=== PATIENT | female | born 1995 | race African-American/Black ===

== ENCOUNTER 2021-10-11 20:10 | Emergency (ER) | payer OTHER, SELFPAY ==
--- NOTE | ~2021-10-11 | CT_ITS ---
EXAMINATION: CT abdomen pelvis wo con DATE: 10/11/2021 21:56 INDICATION: hematuria, LBP TECHNIQUE: Computed tomography (CT) of the abdomen and pelvis was performed without intravenous contr ast. Automated exposure control and iterative reconstruction technique were employed. The dose-length product was 408.79 mGy-cm. COMPARISON: None. FINDINGS: Lower thorax: Unremarkable Liver: Normal. Biliary/Gallbladder: Gallbladder is normal. No bile duct dilation. Pancreas: No mass or duct dilation. Spleen: Normal. Adrenals:No mass. Kidneys: Punctate bilateral nonobstructive calcifications. No mass or hydronephrosis. GI tract: No small or large bowel dilation. Normal appendix. Mesentery/Peritoneum: No ascites, mass, or free air. Retroperitoneum: No mass. Pelvis: Pelvic organs are within normal limits. Soft Tissues: Soft tissues and body wall unremarkable. Small uncomplicated fat-containing umbilical h ernia. Bones: No acute osseous finding. IMPRESSION: No acute abdominopelvic process. Reviewed, dictated and finalized at location K.
[2021-10-11 20:48] VITALS: BP 143/98; PULSE 73; RESP 18; TEMP 37.1; O2SAT 100
[2021-10-11 21:09] LABS: Add Urine Microscopic? YES; Appearance Urine Cloudy (Clear); Bilirubin Urine Negative (Negative); Blood Urine 3+ (Negative); Color Urine Red (Yellow); Glucose Urine UA Negative (Negative); Ketones Urine Negative (Negative); Leukocyte Esterase Ur Trace LEU/UL (Negative); Nitrate Urine Negative (Negative); Protein Urine 3+ mg/dL (Negative); Specific Grav Ur >= 1.030 (1.001-1.035); Urobilinogen Urine 0.2 mg/dL (<2.0)
[2021-10-11 21:15] LABS: RBC Urine >75 /hpf (0-2); WBC Urine 0-3 /hpf
--- NOTE | 2021-10-11 21:47 | ED.FEMALEGU ---
HPI - Female Genitourinary General Chief complaint: Urogenital-Female <Daphne Frank PA-C - Last Filed: 10/12/21 01:42> Stated complaint: UTI <Daphne Frank PA-C - Last Filed: 10/12/21 01:42> Time Seen by Provider: 10/11/21 21:25 <Daphne Frank PA-C - Last Filed: 10/12/21 01:42> History of Present Illness HPI Narrative: Patient is a 26-year-old female here for evaluation of dysuria, suprapubic abdominal pain, and low back pain for the past day. Patient states that the pain is present in her lower abdomen and is also occasionally in her low back, described as a dull ache. Patient has a history of UTI, but has not had one since she was a teenager. Patient has not taken any medication for her pain. Denies fevers, chills, nausea, vomiting, vaginal discharge. <ANA LUISA Tidwell Last Filed: 10/12/21 01:42> Related Data Allergies/Adverse reactions: Allergies Allergy/AdvReac Type Severity Reaction Status Date / Time No Known Allergies Allergy Verified 10/11/21 20:51 <ANA LUISA Tidwell Last Filed: 10/12/21 01:42> Review of Systems Review of Systems: Gen: Denies fevers or chills Eyes: Denies eye pain or visual change ENT: Denies congestion Respiratory: Denies shortness of breath or cough CV: Denies chest pain or palpitations GI: Reports abdominal pain. Denies nausea, emesis or diarrhea : reports hematuria, dysuria, burning. Musculoskeletal: Denies back pain or muscle pain Neuro: Denies numbness, tingling, weakness or focal weakness Skin: Denies rash Except as documented, all other systems reviewed and negative <ANA LUISA Tidwell Last Filed: 10/12/21 01:42> Exam Narrative: APPEARANCE: Well appearing, no pain in distress, well-nourished. Head: Normocephalic and atraumatic. EYES: PERRLA/EOMI, conjunctivae clear NOSE: No nasal drainage EARS: External ear normal in appearance THROAT: Oropharynx is clear. Mucous membranes are moist. NECK: Supple. No adenopathy, no masses. RESPIRATORY: Airway patent, respirations nonlabored. Clear to auscultation bilaterally, no rales, rhonchi, wheezing. CARDIOVASCULAR: Regular rate and rhythm without murmurs, rubs, or gallops. ABDOMINAL: No CVA tenderness. Normoactive bowel sounds. Soft, nontender, nondistended. No rebound tenderness or guarding. MUSCULOSKELETAL: Extremities are warm and well-perfused. Moves all extremities well. No edema. NEURO: Normal speech. No focal neurologic deficits. SKIN: Skin is warm and dry. No rashes. PSYCHIATRIC: Normal affect/mood. <Daphne Frank PA-C - Last Filed: 10/12/21 01:42> Course BAKERY SUPERVISOR/PA Physician Supervision For this patient encounter, I reviewed the BAKERY SUPERVISOR or PA documentation, treatment plan, and medical decision making <Buzz Garcia MD - Last Filed: 10/12/21 05:24> Vital Signs Vital signs: Vital Signs Temperature 98.7 F 10/11/21 20:48 Pulse Rate 73 10/11/21 20:48 Respiratory Rate 18 10/11/21 20:48 Blood Pressure 143/98 H 10/11/21 20:48 Pulse Oximetry 100 10/11/21 20:48 Oxygen Delivery Room Air 10/11/21 20:48 Temperature 97.9 F 10/11/21 22:56 Pulse Rate 80 10/11/21 22:04 Respiratory Rate 16 10/11/21 22:04 Blood Pressure 124/68 10/11/21 22:04 Pulse Oximetry 100 10/11/21 22:04 Oxygen Delivery Room Air 10/11/21 20:48 <Daphne Frank PA-C - Last Filed: 10/12/21 01:42> Vital Signs Temperature 98.7 F 10/11/21 20:48 Pulse Rate 73 10/11/21 20:48 Respiratory Rate 18 10/11/21 20:48 Blood Pressure 143/98 H 10/11/21 20:48 Pulse Oximetry 100 10/11/21 20:48 Oxygen Delivery Room Air 10/11/21 20:48 Temperature 97.9 F 06/21/22 22:56 Pulse Rate 80 10/11/21 22:04 Respiratory Rate 16 10/11/21 22:04 Blood Pressure 124/68 10/11/21 22:04 Pulse Oximetry 100 10/11/21 22:04 Oxygen Delivery Room Air 10/11/21 20:48 <Buzz Garcia MD - Last Marcio
[2021-10-11 22:04] VITALS: BP 124/68; PULSE 80; RESP 16; TEMP 36.8; O2SAT 100
[2021-10-11 22:40] LABS: Basophils Percent Auto 0.2 % (0.2-1.2); Eosinophils Absolute Auto 0.1 K/mm3 (0-0.3); Eosinophils Percent Auto 0.5 % (0-4.4); Hematocrit 44.4 % (37.0-47.0); Hemoglobin 14.4 g/dL (12.0-15.0); Immature Granulocyte Absolute 0.04 K/mm3 (0.00-0.031); Immature Granulocyte Percent A 0.3 % (0-0.5); Lymphocytes Absolute Auto 2.19 K/mm3 (0.9-3.2); Mean Corpuscular HGB Conc 32.4 g/dl (32-36); Mean Corpuscular Hemoglobin 30.3 pg (26-34); Mean Corpuscular Volume 93.3 fl (80-100); Mean Platelet Volume 11.5 fl (7.4-10.4); Monocytes Absolute Auto 1.1 K/mm3 (0.1-0.6); Monocytes Percent Auto 8.3 % (2.6-8.5); Neutrophils Absolute Auto 9.5 K/mm3 (1.3-6.7); Neutrophils Percent Auto 73.7 % (45.5-73.1); Platelet Count Result 212 k/mm3 (150-375); Red Blood Count 4.76 M/mm3 (4.2-5.4); Red Cell Distribution Width 11.6 % (11.5-14.5); White Blood Count 12.9 K/mm3 (4.5-10.0)
[2021-10-11 22:51] LABS: Alanine Aminotransferase 21 U/L (6-35); Albumin Level 4.6 g/dL (3.5-5.1); Alkaline Phosphatase 102 U/L (38-126); Anion Gap 7 mmol/L (8-16); Aspartate Amino Transferase 25 U/L (14-36); Bilirubin,Total 0.3 mg/dL (0.2-1.3); Blood Urea Nitrogen 9 mg/dL (7-17); Calcium 9.2 mg/dL (8.4-10.2); Carbon Dioxide 27 mmol/L (22-30); Chloride 105 mmol/L (98-107); Estimated CRCL calculation 98 ml/min; Estimated Glomerular Filt Rate > 60; Glucose 98 mg/dL (65-110); Potassium 3.7 mmol/L (3.4-5.0); Sodium 139 mmol/L (137-145)
[2021-10-11 22:56] VITALS: TEMP 36.6
== END 2021-10-11 22:57 | disposition home or self-care (01) ==
LOC: ANHED 22:38
PROVIDERS: Physician Assistant; Emergency Provider Emergency Medicine
DX: N39.0 Urinary tract infection, site not specified (principal)
CPT/HCPCS: 36415; 74176; 80053; 81001; 81025; 85025; 99284

== ENCOUNTER 2022-03-25 06:46 | Emergency (ER) | payer OTHER, SELFPAY ==
[2022-03-25 06:49] VITALS: BP 147/99; PULSE 99; RESP 16; TEMP 36.6; O2SAT 100
--- NOTE | 2022-03-25 07:08 | PC.NURSE ---
Report given to JIAN Terry.
[2022-03-25 07:29] VITALS: BP 130/90; PULSE 84; RESP 18; O2SAT 100
[2022-03-25 07:38] LABS: Influenza A QL RT-PCR Positive (Negative); Influenza B QL RT-PCR Negative (Negative); SARS-CoV-2 RNA PCR Negative
--- NOTE | 2022-03-25 07:42 | ED.URI ---
HPI - URI/Sore Throat General Chief Complaint: Upper Respiratory Infection Stated Complaint: SON, cough, loss of taste and smell x 1 day Time Seen by Provider: 03/25/22 07:41 Source: patient History of Present Illness HPI Narrative: 26 years old -[place] female presents with flulike symptoms, cough, sore throat, chills and body aches started yesterday. Related Data Allergies Allergy/AdvReac Type Severity Reaction Status Date / Time No Known Allergies Allergy Verified 03/25/22 06:46 Review of Systems Review of Systems: All systems reviewed & are unremarkable except as noted in HPI and below Exam Narrative: General appearance: Well-developed, well-nourished Skin: Normal color Head: Normocephalic, nontraumatic Eyes: Clear conjunctiva ENT: Oropharyngeal erythema Neck: Supple, nontender Chest and respiratory: Airway patent, no respiratory distress, no accessory muscle use Heart: Regular rate/rhythm Abdomen: Soft, nontender, no organomegaly, quiet bowel sounds Vascular: Normal peripheral pulses, normal capillary refill. Musculoskeletal: Normal range of motion, nontender back Neurologic: Alert and oriented ?3, [facility] MAGISTRATE is normal as tested, no gross motor deficit Course Course Emergency Course: Stable Vital Signs Vital signs: Vital Signs Temperature 36.6 C 03/25/22 06:49 Pulse Rate 99 03/25/22 06:49 Respiratory Rate 16 03/25/22 06:49 Blood Pressure 147/99 H 03/25/22 06:49 Pulse Oximetry 100 03/25/22 06:49 Oxygen Delivery Room Air 03/25/22 06:49 Temperature 36.6 C 03/25/22 06:49 Pulse Rate 84 03/25/22 07:29 Respiratory Rate 18 03/25/22 07:29 Blood Pressure 130/90 03/25/22 07:29 Pulse Oximetry 100 03/25/22 07:29 Oxygen Delivery Room Air 03/25/22 06:53 MDM - URI/Sore Throat Differential Diagnosis Differential diagnosis: Likely upper respiratory infection, viral infection and influenza Lab Data Labs: Lab Results 03/25/22 Range/Units 06:57 Influenza A (RT-PCR) Positive (Negative) Influenza B (RT-PCR) Negative (Negative) SARS-CoV-2 RNA (RT-PCR) Negative Critical Care Time Critical Care Time Critical Care Time: No Discharge Plan Discharge Clinical Impression: Influenza Patient Disposition: Home, Self-Care Condition: Stable Instructions: Antibiotic Form, Influenza (ED) Additional Instructions: Return if symptoms are worsening , call your family physician for appointment, take Tylenol as as needed for aches and pain, continue home medications. Ibuprofen 600 every 6 hours, continue home medication Prescriptions: New oseltamivir [Tamiflu] 75 mg capsule 75 mg PO BID Qty: 10 0RF No Action phenazopyridine [Azo Urinary Pain Relief] 95 mg tablet 95 mg PO TID PRN (Reason: pain) Qty: 6 0RF nitrofurantoin monohyd/m-cryst [Macrobid] 100 mg capsule 100 mg PO Q12H 5 Days Qty: 10 0RF Rx Instructions: must administer with a meal/food Follow-up/Referrals: UNKNOWN,DOCTOR [Primary Care Provider] - Stand Alone Forms: Work/School Release IP
[2022-03-25] MEDS: IBUPROFEN 600 MG TABLET PO (07:50)
[2022-03-25] MEDS: ACETAMINOPHEN 325 MG TABLET 650 MG PO (07:50)
[2022-03-25 08:41] VITALS: BP 140/83; PULSE 66; RESP 18; O2SAT 100
== END 2022-03-25 08:43 | disposition home or self-care (01) ==
PROVIDERS: Emergency Medicine; Emergency Provider Emergency Medicine
DX: J10.1 Influenza due to other identified influenza virus with other respiratory manifestations (principal); Z20.822 Contact with and (suspected) exposure to COVID-19
CPT/HCPCS: 87636; 99283; A9270

== ENCOUNTER 2022-06-13 07:01 | Emergency (ER) | payer OTHER, SELFPAY ==
[2022-06-13] VITALS (33 sets, daily range): BP systolic 122–138; BP diastolic 77–111; PULSE 57–97; RESP 10–25; TEMP 36.8; O2SAT 98–100
--- NOTE | ~2022-06-13 | XR_ITS ---
EXAMINATION: XR chest 2V 06/13/2022 07:55 INDICATION: Chest pain PROCEDURE: 2 view chest COMPARISON: No prior studies for comparison. FINDINGS: The lungs are clear. The cardiomediastinal silhouette is within normal limits. There are no pleural effusions. There is no pneumothorax suspected. IMPRESSION: 1: NO ACUTE CARDIOPULMONARY DISEASE. Reviewed, dictated and finalized at location L. [employer]
--- NOTE | 2022-06-13 07:07 | ECG_ITS ---
Measurements Intervals [place] Rate: 76 P: 51 UT: 176 QRS: 16 QRSD: 77 T: 21 QT: 360 QTc: 405 Interpretive Statements SINUS RHYTHM WITH SINUS ARRHYTHMIA NORMAL ECG NO PREVIOUS ECG AVAILABLE FOR COMPARISON Electronically Signed On 06-13-2022 14:12:31 [employer]ARNISH INSPECTOR by Peewee Galeana M.D.
[2022-06-13] MEDS: KETOROLAC 30 MG/ML VIAL (*BKC) IV PUSH (07:45)
--- NOTE | 2022-06-13 07:53 | PC.NURSE ---
Pt off floor to radiology.
--- NOTE | 2022-06-13 08:03 | ED.CHESTPAIN ---
HPI - Chest Pain General Chief Complaint: Chest Pain Stated Complaint: chest pain Time Seen by Provider: 06/13/22 07:06 History of Present Illness HPI narrative: Patient is a 27-year-old female who presents to the ER with 2 days chest pain. It located pinpoint over the right side of her sternum. Worse with movements of her arms lifting things above her head. Worse with deep breath. No exertional chest discomfort. No runny nose or sore throat or productive cough. No hemoptysis. No lower extremity swelling or long distance travel. No recent surgery. Patient does take control pill. No family history of blood clots. No personal history of clotting disorder. No history of heart disease at a young age. Related Data Home Medications Medication Instructions Recorded Confirmed amitriptyline 10 mg tablet 10 mg PO HS 06/13/22 06/13/22 norethindrone 1 mg-ethinyl 1 tablet DAILY 06/13/22 06/13/22 estradiol 20 mcg (21)-iron 75 mg (7) tablet (Kody Fe 05/12 ()) Allergies Allergy/AdvReac Type Severity Reaction Status Date / Time No Known Allergies Allergy Verified 06/13/22 07:18 Review of Systems Review of Systems: All systems reviewed & are unremarkable except as noted in HPI and below Constitutional: Constitutional: Denies chills, Denies fatigue and Denies fever(s) ENT: Denies nasal congestion and Denies sore throat Cardiovascular: Cardiovascular: Reports chest pain, Denies rapid heart rate and Denies radiating jaw, neck or arm pain Respiratory: Respiratory: Denies cough, Denies dyspnea and Denies wheezing Gastrointestinal: Gastrointestinal: Denies abdominal pain, Denies nausea and Denies vomiting PMFSH Past Medical History Medical History (Updated 06/13/22 @ 10:02 by Bertin Gaxiola MD) Healthy female adult Surgical History Surgical History (Updated 06/13/22 @ 08:05 by Bertin Gaxiola MD) No history of previous surgery Social History Social History (Updated 06/13/22 @ 08:05 by Bertin Gaxiola MD) Smoking status: Never smoker Exam Narrative: GENERAL: Well-appearing, well-nourished, and in no acute distress. HEAD: Normocephalic, atraumatic. EYES: PERRL and EOMI. CHEST: Clear to auscultation. No respiratory distress. Tender to palpation over the right side of the sternum upper aspect without bruising or swelling or redness. HEART: Regular rate and rhythm. Normal peripheral pulses. EXTREMITIES: Normal range of motion. No edema. SKIN: Warm, dry, no rash. NEURO: Alert and oriented x3. PSYCH: Normal mood and affect. Course Course Emergency Course: Mild improvement with Toradol. Informed of lab/imaging/EKG results. Patient felt to have costochondritis and not PE/ACS. [place] appropriate for discharge with anti-inflammatories. Vital Signs Vital signs: Vital Signs Pulse Rate 86 06/13/22 07:05 Respiratory Rate 18 06/13/22 07:05 Blood Pressure 126/111 H 06/13/22 07:05 Pulse Oximetry 99 06/13/22 07:05 Oxygen Delivery Room Air 06/13/22 07:05 Temperature 98.2 F 06/13/22 07:08 Pulse Rate 61 06/13/22 09:31 Respiratory Rate 13 06/13/22 09:31 Blood Pressure 134/96 H 06/13/22 09:31 Pulse Oximetry 100 06/13/22 09:31 Oxygen Delivery Room Air 06/13/22 07:15 MDM - Chest Pain Lab Data 06/13/22 07:46 06/13/22 07:46 Labs: Lab Results 06/13/22 06/13/22 06/13/22 Range/Units 07:46 07:46 07:46 WBC 7.5 (4.5-10.0) K/mm3 RBC 4.79 (4.2-5.4) M/mm3 Hgb 14.5 (12.0-15.0) g/dL Hct 43.2 (37.0-47.0) % MCV 90.2 (80-100) fl MCH 30.3 (26-34) pg MCHC 33.6 (32-36) g/dl RDW 11.9 (11.5-14.5) % Plt Count 207 (150-375) k/mm3 MPV 11.6 H (7.4-10.4) fl Immature Gran % (Auto) 0.3 (0-0.5) % Neut % (Auto) 63.1 (45.5-73.1) % Lymph % (Auto) 26.1 (18.3-44.2) % [place] % (Auto) 9.4 H (2.6-8.5) % Eos % (Auto) 0.7 (0-4.4) % Baso % (Auto) 0.4 (0.2-1.2) % Lymph
[2022-06-13 08:06] LABS: Basophils Percent Auto 0.4 % (0.2-1.2); Eosinophils Absolute Auto 0.1 K/mm3 (0-0.3); Eosinophils Percent Auto 0.7 % (0-4.4); Hematocrit 43.2 % (37.0-47.0); Hemoglobin 14.5 g/dL (12.0-15.0); Immature Granulocyte Absolute 0.02 K/mm3 (0.00-0.031); Immature Granulocyte Percent A 0.3 % (0-0.5); Lymphocytes Absolute Auto 1.95 K/mm3 (0.9-3.2); Lymphocytes Percent Auto 26.1 % (18.3-44.2); Mean Corpuscular HGB Conc 33.6 g/dl (32-36); Mean Corpuscular Hemoglobin 30.3 pg (26-34); Mean Corpuscular Volume 90.2 fl (80-100); Mean Platelet Volume 11.6 fl (7.4-10.4); Monocytes Absolute Auto 0.7 K/mm3 (0.1-0.6); Monocytes Percent Auto 9.4 % (2.6-8.5); Neutrophils Absolute Auto 4.7 K/mm3 (1.3-6.7); Neutrophils Percent Auto 63.1 % (45.5-73.1); Platelet Count Result 207 k/mm3 (150-375); Red Blood Count 4.79 M/mm3 (4.2-5.4); Red Cell Distribution Width 11.9 % (11.5-14.5); White Blood Count 7.5 K/mm3 (4.5-10.0)
[2022-06-13 08:15] LABS: INR 1.1; Prothrombin Time 13.6 Seconds (11.1-14.7)
[2022-06-13 08:16] LABS: Partial Thromboplastin Time 26.2 SECONDS (22.3-36.8)
[2022-06-13 08:19] LABS: Alanine Aminotransferase 17 U/L (6-35); Albumin Level 4.7 g/dL (3.5-5.1); Alkaline Phosphatase 105 U/L (38-126); Anion Gap 8 mmol/L (8-16); Aspartate Amino Transferase 25 U/L (14-36); Bilirubin,Total 0.7 mg/dL (0.2-1.3); Blood Urea Nitrogen 10 mg/dL (7-17); Carbon Dioxide 26 mmol/L (22-30); Chloride 105 mmol/L (98-107); Estimated CRCL calculation 109 ml/min; Estimated Glomerular Filt Rate > 60; Glucose 89 mg/dL (65-110); Potassium 3.9 mmol/L (3.4-5.0); Sodium 139 mmol/L (137-145)
[2022-06-13 08:29] LABS: Troponin I < 0.012 ng/mL (0.000-0.034)
--- NOTE | 2022-06-13 08:35 | PC.NURSE ---
Checked with lab, PT INR and D Dimer still pending. No need to redraw at this time.
[2022-06-13 08:38] LABS: D Dimer 0.36 ug/mL (<0.48)
== END 2022-06-13 10:30 | disposition home or self-care (01) ==
PROVIDERS: Emergency Provider Emergency Medicine; PCP Internal Medicine
DX: R07.1 Chest pain on breathing (principal)
CPT/HCPCS: 36415; 71046; 80053; 81025; 84484; 85025; 85380; 85610; 85730; 93005; 96374; 99284; J1885